=== PATIENT | female | born 1975 | race Native Hawaiian/Other Pacific Islander ===

== ENCOUNTER → 2021-02-04 17:47 | Outpatient (CLI) | payer OTHER, SELFPAY ==
--- NOTE | 2021-02-04 | DI.MRI.S_ITS ---
PROCEDURE: MR SHOULDER RT WO CON INDICATIONS: Pain in unspecified shoulder TECHNIQUE: Noncontrast oblique coronal T2 fast spin echo with fat saturation, oblique sagittal T1 spin echo and T2 fast spin echo with fat saturation, axial T1 spin echo and T2 fast spin echo with fat saturation through the shoulder. COMPARISON: None. FINDINGS: Image quality: Excellent. Rotator cuff: Tendinosis and low-grade articular and bursal surface partial thickness tear involving distal supraspinatus at its insertion on the humeral head is seen extending to musculotendinous junction. Distal infraspinatus and subscapularis tendons are intact. Sagittal images demonstrate mild supraspinatus muscle atrophy. Bones and bursae: No bone marrow contusions or fractures. Mild to moderate acromioclavicular joint osteoarthritic changes are seen with downward osteophyte formation depressing the musculotendinous junction of supraspinatus. No pathologic subacromial-subdeltoid or subcoracoid bursal fluid is present. Capsule and soft tissues: There is suggestion of superior anterior labral tear at 12 to 2 o'clock position. The glenohumeral ligaments are intact. The long head of the biceps tendon demonstrates normal location and morphology. The rotator interval appears normal, without fibrosis. The coracohumeral ligament is normal in thickness. IMPRESSION: 1. Tendinosis and low-grade articular and bursal surface partial thickness tear involving distal supraspinatus extending to musculotendinous junction. Very mild supraspinatus muscle atrophy. 2. Mild to moderate acromioclavicular joint osteoarthritis. No fracture or dislocation. 3. Suggestion of superior anterior labral tear at 12 to 2 o'clock position. Dictated by: Hair Reid M.D. on 02/05/2021 at 8:35 Approved by: Hair Reid M.D. on 02/05/2021 at 8:38
== END ==
PROVIDERS: Referring Provider Internal Medicine; Visit Provider Internal Medicine
DX: M25.511 Pain in right shoulder (principal); M75.111 Incomplete rotator cuff tear or rupture of right shoulder, not specified as traumatic; M19.011 Primary osteoarthritis, right shoulder
CPT/HCPCS: 73221

== ENCOUNTER → 2021-11-04 07:37 | Outpatient (CLI) | payer OTHER, SELFPAY ==
--- NOTE | 2021-11-04 | DI.NM.S_ITS ---
PROCEDURE: NM HIDA WITH CCK PHARMACEUTICAL: 5.3 mCi Tc-99m mebrofenin IV; 1.9 mcg CCK IV. INDICATIONS: Unspecified abdominal pain TECHNIQUE: Following intravenous administration of Tc-99m mebrofenin, sequential anterior abdominal images were obtained. To evaluate the contractile response of the gallbladder in response to Cholecystokinin (CCK), sincalide (0.02 ?g/kg) was administered by slow intravenous infusion approximately 60 minutes after the administration of the radiopharmaceutical. Sequential imaging was continued for 30 minutes after the start of CCK infusion. Gallbladder ejection fraction was calculated. COMPARISON: None. FINDINGS: Biliary scan: There is normal tracer uptake and excretion by the liver. There is normal visualization of the intrahepatic ducts, common bile duct, and gallbladder. There is normal tracer transit into the duodenum. CCK stimulation: There is contractile response of the gallbladder to CCK infusion. The calculated gallbladder ejection fraction is 32%; normal values are above 35%. It has been shown that any patient abdominal pain after CCK administration is related to the rate of CCK injection, rather than to any underlying gallbladder disease (Clinical Nuclear Medicine 2012; 37: 63-70. Journal of Nuclear Medicine 2014; 55: 1-9). IMPRESSION: Normal visualization of the gallbladder. Mildly depressed ejection fraction at 32%. Dictated by: Gina Gonzalez M.D. on 11/04/2021 at 12:00 Approved by: Gina Gonzalez M.D. on 11/04/2021 at 12:01
== END ==
PROVIDERS: PCP Internal Medicine; Referring Provider Internal Medicine; Visit Provider Internal Medicine
DX: R10.9 Unspecified abdominal pain (principal)
CPT/HCPCS: 78227; A9537; J2805

== ENCOUNTER → 2023-05-26 06:37 | Outpatient (CLI) | payer OTHER, SELFPAY ==
--- NOTE | 2023-05-26 06:38 | DI.US.S_ITS ---
PROCEDURE: US PELVIC COMPLETE INDICATIONS: DUB TECHNIQUE: Real-time scanning was performed of the pelvic organs, with image documentation. Additional endovaginal scanning was necessary due to incomplete visualization of the adnexal and endometrial structures by transabdominal scanning. COMPARISON: None. FINDINGS: Uterus: Uterus is anteverted and normal in size at 10.2 x 6.6 x 5.8 cm. The myometrium is homogeneous. The endometrium measures 12.7 mm combined thickness. Mid anterior intramural fibroid measuring 1.6 x 1.4 x 1.2 cm. Ovaries: The right ovary measures 2.4 x 2.4 x 1.4 cm, with a calculated ovarian volume of 4 cc. The left ovary measures 5.5 x 4 x 3.8 cm, with a calculated ovarian volume of 44 cc. The ovaries have a normal sonographic appearance. Less than 12 follicles can be seen in each ovary. No adnexal masses are seen. Other: No pathologic free abdominal or pelvic fluid. IMPRESSION: 1. Endometrium measures 12.7 mm. 2. Small intramural fibroid measuring 1.6 cm. 3. No significant ovarian cysts. We strive to produce accurate, complete, and clear reports of imaging services. To assist us in improving patient care, this report was composed using standard report templates and voice recognition software. Therefore, it may contain abnormal punctuation, insertions and/or omissions. Occasional wrong-word or sound-alike substitutions may occur. Though we review the report and make efforts to correct it, we do recommend that the report be read carefully in proper context to recognize any text inaccuracies. Dictated by: Brian Snow M.D. on 05/26/2023 at 7:54 Approved by: Brian Snow M.D. on 05/26/2023 at 7:58
== END ==
PROVIDERS: PCP Physician Assistant; Referring Provider Obstetrics & Gynecology; Visit Provider Obstetrics & Gynecology
DX: N92.6 Irregular menstruation, unspecified (principal); D25.1 Intramural leiomyoma of uterus
CPT/HCPCS: 76830; 76856

== ENCOUNTER → 2025-07-24 06:44 | Outpatient (CLI) | payer OTHER, SELFPAY ==
--- NOTE | 2025-07-24 06:45 | DI.ECHO.S_ITS ---
[facility] : : [address] : : [place] : : [address] : : Phone: [phone] Echocardiogram Report + + :Name: ROBBIE LINTON Study Date: 07/24/2025 Height: 62 in : :[facility] ReadingLocation: Weight: 195 lb : : Gender: Female BSA: 1.9 m2 : :: 1975 Age: 49 yrs BP: 147/79 mmHg: :Reason For Study: DIZZINESS : :Ordering Physician: VALERIA, : :JERRI Performed By: Aubrey Magallon : :Referring: JERRI HOUSTON : + + Interpretation Summary The ejection fraction is estimated to be 60-65%. Diastolic parameters suggest probable normal left ventricular diastolic function and normal filling pressures. The right ventricle is normal in size and function. No significant valvular abnormalities. Pulmonary artery pressures cannot be estimated because of the lack of a measurable TR jet velocity but the IVC suggests a CVP of around 3 mmHg. Procedure: A two-dimensional transthoracic echocardiogram with color flow and Doppler was performed. The study quality was technically good. There is no prior echocardiogram noted for this patient. The patient was in normal sinus rhythm during the exam. Left Ventricle: The left ventricle is normal in size. There is normal left ventricular wall thickness. There is no ventricular septal defect visualized. The ejection fraction is estimated to be 60-65%. There are no focal wall motion abnormalities. Diastolic parameters suggest probable normal left ventricular diastolic function and normal filling pressures. Right Ventricle: The right ventricle is normal in size and function. Atria: The left atrial size is normal. Right atrial size is normal. There is no Doppler evidence for an interatrial shunt. Mitral Valve: The mitral valve leaflets appear normal. There is no evidence of stenosis, fluttering, or prolapse. There is no mitral regurgitation noted. Aortic Valve: The aortic valve is trileaflet. The aortic valve opens well. There is no aortic valve stenosis. There is trace aortic regurgitation. Tricuspid Valve: The tricuspid valve leaflets are thin and pliable. No tricuspid regurgitation. Pulmonary artery pressures cannot be estimated because of the lack of a measurable TR jet velocity but the IVC suggests a CVP of around 3 mmHg. Pulmonic Valve: The pulmonic valve is not well seen, but is grossly normal. There is no pulmonic valvular regurgitation. Great Vessels: The aortic root is normal size. The dimensions of the ascending aorta are normal. The pulmonary artery is not well visualized, but is probably normal size. The IVC is of normal diameter and collapses greater than 50% with a sniff. This suggests a low right atrial pressure of 3 mm Hg. Pericardium/ Pleura There is no pericardial effusion. There is no pleural effusion. MMode/2D Measurements & Calculations LVIDd: 4.7 cm LVOT diam: 1.9 cm LVIDs: 2.9 cm Ao root diam: 3.0 cm FS: 38.0 % asc Aorta Diam: 3.4 cm EPSS: 0.69 cm IVSd: 1.0 cm LVPWd: 1.0 cm LV bansal. diameter/BSA (cm/m^2): 2.5 LV sys. diameter/BSA (cm/m^2): 1.5 LA A2 area: 17.7 cm2 RA long axis: 5.2 cm LA A4 area: 17.1 cm2 RA area: 17.1 cm2 LA length (vol): 5.5 cm RA vol: 47.3 ml LA vol: 46.9 ml RA : 25.0 ml/m2 LA vol index: 24.8 ml/m2 IVC diam: 1.5 cm RVD1 (basal): 3.6 cm RVD2 (mid): 2.7 cm TAPSE: 3.3 cm Doppler Measurements & Calculations Ao V2 max: 147.1 cm/sec LVOT Max Pelon: 103.9 cm/sec Ao V2 mean: 95.3 cm/sec LV V1 max P.3 mmHg Ao max P.7 mmHg LV V1 VTI: 24.2 cm Ao mean P.1 mmHg MARTINEZ(I,D): 2.2 cm2 Ao V2 VTI: 30.8 cm MARTINEZ(V,D): 2.0 cm2 sev ratio: 0.78 MARTINEZ indexed to BSA (cm^2/m^2): 1.2 MV E max pelon: 103.7 cm/sec PA V2 max: 119.0 cm/sec MV A max pelon: 78.7 cm/sec PA V2 mean: 86.0 cm/sec MV E/A: 1.3 PA mean P.2 mmHg Med Peak E' Pelon: 8.6 cm/sec PA pr(Accel): 31.0 mmHg E/E' med: 12.0 Lat Peak E' Pelon: 10.9 cm/sec E/E' lat: 9.5 E/e' average: 10.7 MV dec time: 0.19 sec SV(LVOT): 68.2 ml Reading Physician:10:52 AM
--- NOTE | 2025-07-24 14:54 | DI.NM.S_ITS ---
DATE OF SERVICE: 07/24/2025 EXERCISE STRESS TEST INDICATIONS: Dizziness with underlying hypertension, hyperlipidemia, sleep apnea. CARDIAC STRESS: The patient underwent exercise stress test under the supervision of an attending staff using standard Sascha protocol. The patient walked on Sascha protocol for 5 minutes and 13 seconds, achieved 5.4 METS of workload, PANCHO positive 33%. Resting blood pressure 126/78 and peak blood pressure 166/88. Maximum heart rate 158, which was 91% of target heart rate. Baseline rhythm sinus. During stress, some nonspecific ST-T changes without any convincing ischemic changes. No significant arrhythmias. No chest pain. The patient had shortness of breath. Dixon fatigue during exercise. CONCLUSION: Exercise stress test is negative for inducible ischemia, however, poor exercise tolerance. PANCHO positive 33%. Normal hemodynamic response. No chest pain. No significant arrhythmias. Dixon fatigue and shortness of breath. Correlate clinically. StuIza - IVETTE/barb/ALEJANDRA doc#: [id number]/job#: [id number] dd: 07/24/2025 12:44:00 dt: 07/24/2025 14:49:00 DICTATING MD/COPIES TO: Ashley Mendoza MD COPIES MNE: JASMIN;
== END ==
LOC: NUCM 06:45
PROVIDERS: PCP Nurse Practitioner Family; Referring Provider Internal Medicine Cardiovascular Disease; Visit Provider Internal Medicine Cardiovascular Disease
DX: R55 Syncope and collapse (principal); R06.09 Other forms of dyspnea; I10 Essential (primary) hypertension; E78.5 Hyperlipidemia, unspecified; G47.30 Sleep apnea, unspecified
CPT/HCPCS: 93017; 93306

== ENCOUNTER 2025-08-12 04:33 | Emergency (ER) | payer OTHER, SELFPAY ==
--- OUTSIDE RECORDS SUMMARY | 2025-05-29 12:00 | XMS_ITS | Encounter Summary ---
Author Organization [facility] Address [address] [place] [address] Care Team Providers Care Technical Services Manager Name Role Phone Swati Acharya NP Primary Care Provider [phone] Reason for Visit * Durable Medical Equipment (Routine) - Closed Specialty Diagnoses / Procedures Referred By Contac t Referred To Contact Cardiology Diagnoses Dizziness Postural dizziness with presyncope Procedures Monitor - 7 Day Placed During Visit Jerri Houston[address] [address] Phone: tel: fax: [address] [phone] Phone: tel: fax: Referral ID Status Reason Start Date Expiration Date Visits Re quested Visits Authorized [id number] Closed 05/10/2025 08/08/2025 1 1 Encounter Details Date Type Department Care Team (Late st Contact Info) Description 05/29/2025 1:00 PM PDT Device Monitoring [facility] Cardiology [address], [place] [address] Dizziness; Pre-syncope Social History Tobacco Use Types Packs/Day Years Used Date Smoking Tobacco: Every Day Cigarettes 0.5 15 Smokeless Tobacco: Never Alcohol Use Standard Drinks/Week Comments Not Currently 0 (1 standard drink = 0.6 oz pur e alcohol) AUDIT-C Answer Date Recorded Q1: How often do you have a drink containing alc ohol? Never 05/15/2020 Q2: How many drinks containi ng alcohol do you have on a typical day when you are drinking? Not asked 05/15/2020 Q3: How often do you have six or more drinks on one occasion? Never 05/15/2020 Comments No Sex and Gender Information Value Date Recorded Sex Assigned at Not on file Legal Sex Female 7:13 PM PDT Gender Identity Not on file Sexual Orientation Not on file documented as of this encounter Progress Notes * Donovan HayesSUSHMA llanos - 05/29/2025 1:00 PM PDT You are being prescribed a Zio by iRhythm heart monitor to wear over the next 7 days. Your Zio camewith a prepaid USPS postage to return the monitor at the end of wear. Make sure to keep the box and/or prepaid envelope that came with your Zio monitor and mail the device via USPS promptly at the end of wear. You may need to schedule an appointment with your provider for follow-up and results. Please discuss this with your provider???s office. FOR ASSISTANCE WITH YOUR ZIO, PLEASE CALL CUSTOMER CARE 15/03 at [phone] Patient Instructions: Avoid showering for the first 24 hours For Zio AT (MCT) Monitor - Keep the black gateway nearby Press the button on the center of your Zio when you feel symptoms Log the symptom in your log book OR download the free [employer] isaac to log your symptoms on your phone If you experience any skin irritation or your monitor falls off prematurely, call the customer careline above Wear the Zio for 7 days Removal instructions are included with your monitor Insurance Information: Your insurance company may send an Explanation of Benefits (EOB). An EOB from your insurance carrier is NOT a bill. You will be responsible for usual [id number] cost associated with deductibles and co-insurances determined by your insurance provider. If there is a balance due, you will receive a statement from [employer] for your portion. If your insurance does not cover the cost of the iRhythm monitor a maier pay option is available andfinancial assistance programs are available for those who qualify. For insurance coverage, financial assistance, or eqp-[id number] estimates, call [facility] at [phone] Prompt Return of the Zio Monitor: The device and kit components must be returned immediately upon completion of wear using the pre-paid cabinetmaker supervisor. Delay in return may result in delayed final test results. FOR ASSISTANCE WITH YOUR ZIO, PLEASE CALL CUSTOMER CARE 15/03 at [phone] * Donovan Sawant MA - 05/29/2025 1:00 PM PDT 1 week Zio placed per R42 (ICD-10-CM) - Dizziness R42,R55 (ICD-10-CM) - Postural dizziness with presyncope Ordering PCP: [facility] Reading PCP:[facility]Y Monitor SN: [id number] Pt is registered in [place], provided with vendor instructions/education. Pt has verbalized their understanding, and is agreeable to plan. * Emelia Barnett MA - 05/29/2025 1:00 PM PDT Zio ready for review and messaged PRETTY. documented in this encounter Plan of Treatment Upcoming Encounters Date Type Department Care Team (Late st Contact Info) Description 08/17/2025 1:00 PM PST Office Visit [facility] Cardiology [address], [place] [phone] Jerri Houston [address] [place] [address] 02/20/2026 9:00 AM PDT Office Visit [facility] End[facility] [address] [place] [phone] Ismael Polanco DO [facility] [place], [place] [phone] Scheduled Procedures Name Priority Associated Diagnoses Date/Ti me TRANSPOSITION OF MEDIAN NERV E AT CARPAL TUNNEL Carpal tunnel syndrome of right wrist documented as of this encounter Procedures Procedure Name Priority Date/Time Associated Diagnosis Comments MONITOR - 7 DAY Routine 06/17/2025 Dizziness Pre-syncope documented in this encounter Results * Monitor - 7 Day Placed During Visit (06/17/2025) us Jerri Houston DO [facility] PROCED URES Final Result documented in this encounter Visit Diagnoses Diagnosis Dizziness Dizziness and giddiness Pre-syncope Syncope and collapse documented in this encounter Care Teams Technical Services Manager Relationship Specialty Start Date End Date Swati Acharya NP [facility] [place] [phone] PCP - General Nurse Practitioner Family 04/30/25 documented as of this encounter
[2025-08-12 04:45] VITALS: BP 190/90; PULSE 90; RESP 18; TEMP 36.6; O2SAT 100; BMI 35.6
--- NOTE | 2025-08-12 05:01 | DI.CT.S_ITS ---
PROCEDURE: CT ABDOMEN PELVIS W CON INDICATIONS: bilateral abdominal pain TECHNIQUE: After the administration of intravenous contrast, axial sections acquired from the lung bases to the pubic symphysis. Coronal and sagittal reformats were performed. For radiation dose reduction, the following was used: automated exposure control, adjustment of mA and/or kV according to patient size. COMPARISON: None. FINDINGS: Image quality: Diagnostic. Lower Chest: No significant findings. ABDOMEN: Liver: No solid mass. Gallbladder: No radiopaque gallstones or wall thickening. Biliary ducts: No biliary dilation. Pancreas: No ductal dilation. Spleen: Size is within normal limits. Adrenal Glands: No adrenal nodules. Kidneys and Ureters: No hydronephrosis. No solid mass. No complex renal cystic lesion which requires follow up. Stomach and Bowel: Normal colonic caliber, without significant wall thickening. Minimal colonic diverticulosis is seen without active diverticulitis. No dilated loops of small bowel are seen. A normal appendix is noted. Peritoneum: No abnormal intraperitoneal fluid. No free air. Ventral Wall: Anterior abdominal wall inflammatory change can be seen within the subcutaneous fat, as on series 2, image 119. No significant ventral hernia. Abdominal Nodes: No retroperitoneal or mesenteric adenopathy by size criteria. Vessels: Aorta and inferior vena cava are normal in size. PELVIS: Pelvic Organs: A bulky along a fibroid uterus is seen. No adnexal masses are seen on either side. Bladder: No bladder wall thickening, accounting for underdistention. Pelvic Nodes: No enlarged lymph nodes. Miscellaneous: No inguinal hernias are seen. Bones: No aggressive osseous abnormality. IMPRESSION: Anterior abdominal wall inflammatory change. Normal appendix. Additional findings: Diverticulosis, without active diverticulitis Bulky, fibroid uterus Note: No significant discrepancy from the preliminary report. Dictated by: Long Bateman M.D. on 08/12/2025 at 6:20 Approved by: Long Bateman M.D. on 08/12/2025 at 6:24
[2025-08-12] MEDS: KETOROLAC 30 MG/ML VIAL 15 MG IV (05:07)
--- NOTE | 2025-08-12 05:11 | ED.ABDPAIN ---
HPI - Abdominal Pain General Chief Complaint: Abdominal Pain Stated Complaint: Abdominal Pain, Nausea Time Seen by Provider: 08/12/25 04:47 Source: patient Mode of arrival: Ambulatory History of Present Illness HPI narrative: 49-year-old female with a history of diabetes presents with pain underneath her ribcage area bilaterally for the past 5 days off and on. The pain radiates to her back area and woke her up this a.m.. She denies any or GI symptoms. Patient denies any other symptoms. Related Data Home Medications ?Medication ?Instructions ?Recorded ?Confirmed aspirin 81 mg tablet,delayed 81 mg PO DAILY 06/16/23 08/08/25 release (Adult Aspirin Regimen) atorvastatin 20 mg tablet (Lipitor) 20 mg PO DAILY 06/16/23 08/08/25 lisinopril 2.5 mg tablet 2.5 mg PO DAILY 06/16/23 08/08/25 tirzepatide 5 mg/0.5 mL 5 mg SUBCUT QWEEK 06/16/23 08/08/25 subcutaneous pen injector (Mounjaro) empagliflozin 10 mg tablet 10 mg PO DAILY 08/08/25 08/08/25 (Jardiance) insulin glargine 100 unit/mL 70 unit SUBCUT QPM 08/08/25 08/08/25 subcutaneous cartridge Previous Rx's ?Medication ?Instructions ?Recorded tranexamic acid 650 mg tablet 1,300 mg (2 x 650 mg) PO TID 5 08/08/25 days #30 tabs cyclobenzaprine 10 mg tablet 10 mg PO TID PRN muscle spasm #14 08/12/25 tabs cyclobenzaprine 10 mg tablet 10 mg PO TID PRN muscle spasm #14 08/12/25 tabs Allergies Allergy/AdvReac Type Severity Reaction Status Date / Time INGREDIENT: NKDA - NO KNOWN Allergy Unknown Uncoded 08/12/25 04:48 DRUG ALLERGIES Review of Systems Review of Systems ROS Unobtainable: All systems reviewed & are unremarkable except as noted in HPI and below Exam Narrative Exam Narrative: General: Patient appears to be in no acute distress, acting appropriately Head: normocephalic, atraumatic, HEENT: Pupils equal round reactive, eyes tracking well, neck supple, no JVD Heart: regular rate and rhythm, no murmurs, rubs, or gallops heard Lungs: clear to auscultation, no adventitious sounds Abdomen: soft , mildly tender to palpation and left upper and right upper abdominal quadrant areas, Soto's sign negative. No rebound no guarding Neurological: no focal neurological signs, moving all extremities well, alert and oriented x3, Psych: good judgment ,good insight, mood is normal. Initial Vital Signs Initial Vital Signs: Vital Signs Temperature 98 F 08/12/25 04:45 Pulse Rate 90 08/12/25 04:45 Respiratory Rate 18 08/12/25 04:45 Blood Pressure 190/90 H 08/12/25 04:45 Pulse Oximetry 100 08/12/25 04:45 Oxygen Delivery Method Room Air 08/12/25 04:45 Course Orders Ordered: ED Orders 08/12/25 04:46 Test Urine Stat Urine Microscopic Stat 08/12/25 04:58 Complete Blood Count AUTO DIFF Stat Comprehensive Metabolic Panel Stat Lipase Stat 08/12/25 05:01 CT abdomen pelvis w con Stat Discontinued Medications Ketorolac Tromethamine (Ketorolac 30 Mg/Ml Vial) 15 mg IV NOW ONE Stop: 08/12/25 05:01 Last Admin: 08/12/25 05:07 Dose: 15 mg Documented By: [email or web address] Vital Signs Vital signs: Vital Signs - 8 hr 08/12/25 04:45 Temperature 98 F Pulse Rate 90 Respiratory Rate 18 Blood Pressure 190/90 H Pulse Oximetry 100 Oxygen Delivery Method Room Air MDM - Abdominal Pain Lab Data 08/12/25 04:58 08/12/25 04:58 Labs: Lab Results 08/12/25 08/12/25 Range/Units 04:46 04:58 WBC 6.8 (4.5-11.0) X10^3/uL RBC 5.11 (4.0-5.2) X10^6/uL Hgb 11.2 L (12.0-16.0) g/dL Hct 35.4 L (36-46) % MCV 69.3 L (80-100) fL MCH 22.0 L (26-34) PG MCHC 31.7 (30-36) % RDW 19.4 H (11.6-14.8) % Plt Count 261 (150-400) X10^3/uL Neut % (Auto) 59.9 (50-75) % Lymph % (Auto) 24.1 L (25-40) % [place] % (Auto) 12.8 (3-14) % Eos % (Auto) 2.7 (2-4) % Baso % (Auto) 0.5 (0-2) % Neut # (Auto) 4100 (1068-8149) /uL Lymph # (Auto) 1600 (6573-8520) /uL [place] # (Auto) 900 (0-900) /uL Eos # (Auto) 200 (0-450) /uL Baso # (Auto) 0 (0-100) /uL RBC Morphology See below Anisocytosis 1+ H Microcytosis 2+ H Rouleaux 2+ H Sodium 136 L (137-145) mmol/L Potassium 4.3 (3.4-5.1) mmol/L Chloride 105 (98-107) mmol/L Carbon Dioxide 21 L (22-32) mmol/L BUN 10 (7-17) mg/dL Creatinine 0.59 (0.52-1.04) mg/dL Estimated GFR > 60 (>60) mL/min BUN/Creatinine Ratio 16.9 (6-22) Glucose 277 H (70-99) mg/dL Calcium 8.6 (8.4-10.2) mg/dL Total Bilirubin 0.4 (0.2-1.3) mg/dL AST 26 (14-36) IU/L ALT 20 (<35) IU/L Alkaline Phosphatase 80 (38-126) U/L Total Protein 8.2 (6.3-8.2) g/dL Albumin 4.7 (3.5-5.0) g/dL Globulin 3.5 (1.7-4.1) g/dL Albumin/Globulin Ratio 1.3 (1.0-2.8) Lipase 63 (23-300) U/L Urine RBC None seen (0-5/HPF) Urine WBC None seen (0-5/HPF) Ur Squamous Epith Cells 1-5 /hpf (0-5/HPF) Urine Bacteria Occasional (0-1) (None) Urine Mucus 1+ H (Negative) Ur Culture Indicated? Cult not indicated Vol Urine Centrifuged 10ml (spun) Urine Test Negative (Negative) Point of care testing: Urine Dip Bedside Urine Glucose 500 mg/dl Bedside Urine Bilirubin - Negative Bedside Urine Ketone - Negative Urine Specific [place] 1.020 Bedside Urine Occult Blood - Negative Bedside Urine pH 6.0 Bedside Urine Protein +/- 15 Bedside Urine Urobilinogen - Negative Bedside Urine Nitrite - Negative Bedside Urine Leukocytes - Negative Esterase Imaging Data CT scan - abdomen/pelvis: Radiologist's Impression: There is localized inflammation/edema involving the subcutaneous fat in the lower abdominal wall. There is an enlarged leiomyomatous uterus. Colonic diverticulosis MDM Narrative Medical decision making narrative: 49-year-old female with known uncontrolled diabetes presents with sudden pain in bilateral upper abdominal region. Imaging suggested potential inflammation of the subcutaneous fat. Patient advised to use NSAIDs as needed and given some muscle relaxants to be used as needed as well. She may want to do a skin biopsy in the near future as an outpatient to confirm diagnosis. Also advised to strictly adhere to diabetic diet. Follow up if symptoms worsen. Patient is aware of her leiomyomatous uterus and is under the care of a OBGYN already. CT abdomen also showed diverticulosis and a diverticulosis diet was discussed with the patient. Discharge Plan Departure Patient Disposition: Home Clinical Impression: Inflammatory disease of subcutaneous fat, Diverticulosis Instructions: DI for Diverticulosis, Edema Activity Restrictions/Additional Instructions: Continue to work on bringing glucose down. The localized inflammation/edema involving the subcutaneous fat is most likely from uncontrolled diabetes. Advised to stay on a strict diabetic diet that includes fruits and vegetables. Try to continue to stay physically active. Use muscle relaxants as needed. Follow up if symptoms worsen. May want to get a skin biopsy to confirm diagnosis either with PCP or Dermatology. Prescriptions: New cyclobenzaprine 10 mg tablet 10 mg PO TID PRN (Reason: muscle spasm) Qty: 14 0RF cyclobenzaprine 10 mg tablet 10 mg PO TID PRN (Reason: muscle spasm) Qty: 14 0RF No Action Mounjaro 5 mg/0.5 mL pen injector 5 mg SUBCUT QWEEK atorvastatin [Lipitor] 20 mg tablet 20 mg PO DAILY lisinopril 2.5 mg tablet 2.5 mg PO DAILY aspirin [Adult Aspirin Regimen] 81 mg tablet,delayed release (DR/EC) 81 mg PO DAILY insulin glargine 100 unit/mL cartridge 70 unit SUBCUT QPM Jardiance 10 mg tablet 10 mg PO DAILY tranexamic acid 650 mg tablet 1,300 mg PO TID 5 Days Qty: 30 4RF Referrals: Swati Acharya ARNP [Primary Care Provider, Nursing] Stand Alone Forms: Patient Portal/API
[2025-08-12 05:14] LABS: Add Manual Diff / Slide Review NO; Hematocrit 35.4 % (36-46); Hemoglobin 11.2 g/dL (12.0-16.0); Lymphocytes Absolute Auto 1600 /uL (1100-4500); Mean Corpuscular HGB Conc 31.7 % (30-36); Mean Corpuscular Hemoglobin 22.0 PG (26-34); Mean Corpuscular Volume 69.3 fL (80-100); Platelet Count 261 X10^3/uL (150-400)
[2025-08-12 05:20] LABS: Alanine Aminotransferase 20 IU/L (<35); Albumin 4.7 g/dL (3.5-5.0); Albumin Globulin Ratio 1.3 (1.0-2.8); Alkaline Phosphatase 80 U/L (38-126); Blood Urea Nitrogen 10 mg/dL (7-17); Calcium 8.6 mg/dL (8.4-10.2); Carbon Dioxide 21 mmol/L (22-32); Chloride 105 mmol/L (98-107); Estimated Glomerular Filt Rate > 60 mL/min (>60); Globulin 3.5 g/dL (1.7-4.1); Glucose 277 mg/dL (70-99); HEMOLYSIS 50 (0-50); Lipase 63 U/L (23-300); Potassium 4.3 mmol/L (3.4-5.1); Sodium 136 mmol/L (137-145); Total Protein 8.2 g/dL (6.3-8.2)
[2025-08-12 05:22] VITALS: PULSE 74; O2SAT 98
[2025-08-12 05:24] LABS: Culture Indicated Urine Cult Not Indicated
[2025-08-12 05:31] LABS: Anisocytosis 1+; Microcytosis 2+; Rouleaux 2+
[2025-08-12 05:41] VITALS: PULSE 74; O2SAT 100
[2025-08-12 06:00] VITALS: PULSE 70; O2SAT 98
[2025-08-12 06:26] VITALS: PULSE 72; O2SAT 99
[2025-08-12 06:27] VITALS: BP 125/62
== END 2025-08-12 06:38 | disposition home or self-care (01) ==
PROVIDERS: Emergency Provider Family Medicine; PCP Nurse Practitioner Family
DX: K57.30 Diverticulosis of large intestine without perforation or abscess without bleeding (principal); M79.3 Panniculitis, unspecified; R11.0 Nausea; M54.9 Dorsalgia, unspecified; R10.11 Right upper quadrant pain
CPT/HCPCS: 36415; 74177; 80053; 81003; 81015; 81025; 83690; 85025; 96374; 99284; J1885; Q9967